=== PATIENT | female | born 1955 | race African-American/Black ===

== ENCOUNTER → 2016-05-06 | Outpatient (CLI) | payer OTHER ==
[2016-05-06 17:30] LABS: PROTHROMBIN TIME 28.1 SEC (11.4-15.4)
== END ==
LOC: OD 16:59
PROVIDERS: ATTEND Internal Medicine
DX: Z79.01 Long term (current) use of anticoagulants (principal)
CPT/HCPCS: 36415; 85610

== ENCOUNTER → 2016-05-16 | Outpatient (CLI) | payer OTHER ==
[2016-05-16 13:24] LABS: APPEARANCE,URINE CLEAR; BILIRUBIN,URINE NEGATIVE (NEGATIVE); GLUCOSE, URINE NEGATIVE (NEGATIVE); KETONES,URINE NEGATIVE (NEGATIVE); LEUKOCYTE ESTERASE,URINE NEGATIVE (NEGATIVE); NITRITE,URINE NEGATIVE (NEGATIVE); PROTEIN,URINE NEGATIVE (NEGATIVE); UROBILINOGEN,URINE NEGATIVE mg/dL (<2.0)
[2016-05-16 13:31] LABS: ABSOLUTE EOSINOPHILS # (AUTO) 0.3 10^3/uL (0.0-0.6); ABSOLUTE LYMPHOCYTES (AUTO) 2.2 10^3/uL (0.5-4.7); ABSOLUTE MONOCYTES (AUTO) 0.3 10^3/uL (0.1-1.4); ABSOLUTE NEUT (AUTO) 1.9 10^3/uL (1.7-8.2); BASOPHILS % (AUTO) 0.9 % (0-2); EOSINOPHILS % (AUTO) 6.7 % (0-6); HEMATOCRIT 39.5 % (36.0-47.0); HEMOGLOBIN 13.1 g/dL (12.0-15.5); HGB HCT DIFFERENCE -0.2; LYMPHOCYTES % (AUTO) 46.2 % (13-45); MEAN CORPUSCULAR HEMOGLOBIN 29.4 pg (27.0-33.4); MEAN CORPUSCULAR HGB CONC 33.1 g/dL (32.0-36.0); MEAN CORPUSCULAR VOLUME 89 fl (80-97); MONOCYTES % (AUTO) 6.6 % (3-13); RED BLOOD COUNT 4.45 10^6/uL (3.72-5.28); RED CELL DISTRIBUTION WIDTH 15.4 % (11.5-14.0); SEGMENTED NEUTROPHILS % (AUTO) 39.6 % (42-78); WHITE BLOOD COUNT 4.8 10^3/uL (4.0-10.5)
[2016-05-16 13:49] LABS: ALANINE AMINOTRANSFERASE 28 U/L (9-52); ALBUMIN 3.8 g/dL (3.5-5.0); ALKALINE PHOSPHATASE 85 U/L (38-126); ANION GAP 8 (5-19); ASPARTATE AMINO TRANSFERASE 29 U/L (14-36); BILIRUBIN,TOTAL 0.4 mg/dL (0.2-1.3); BLOOD UREA NITROGEN 10 mg/dL (7-20); CALCIUM 9.4 mg/dL (8.4-10.2); CARBON DIOXIDE 29 mmol/L (22-30); CHLORIDE 104 mmol/L (98-107); CHOLESTEROL 230.22 mg/dL (0-200); Direct HDL 75 mg/dL (>40); GLUCOSE 86 mg/dL (75-110); POTASSIUM 4.3 mmol/L (3.6-5.0); TOTAL PROTEIN 7.4 g/dL (6.3-8.2); TRIGLYCERIDES 161 mg/dL (<150); URIC ACID 5.8 mg/dL (2.5-7.5)
[2016-05-16 14:08] LABS: DIRECT LDL 89 mg/dL (<100)
[2016-05-16 14:13] LABS: VLDL CHOLESTEROL 32.2 mg/dL (10-31)
[2016-05-16 14:28] LABS: THYROID STIMULATING HORMONE 1.27 uIU/mL (0.47-4.68)
== END ==
LOC: OD 12:37
PROVIDERS: ATTEND Internal Medicine
DX: I10 Essential (primary) hypertension (principal); Z13.1 Encounter for screening for diabetes mellitus
CPT/HCPCS: 36415; 80053; 80061; 81001; 83036; 84439; 84443; 84550; 85025

== ENCOUNTER → 2016-07-05 | Outpatient (CLI) | payer OTHER ==
[2016-07-05 11:27] LABS: PROTHROMBIN TIME 31.6 SEC (11.4-15.4)
== END ==
LOC: OD 10:06
PROVIDERS: ATTEND Internal Medicine
DX: Z79.01 Long term (current) use of anticoagulants (principal)
CPT/HCPCS: 36415; 85610

== ENCOUNTER 2016-07-18 07:15 | Day surgery (SDC) | payer OTHER ==
[~2016-07-18 07:15] MED LIST: BUPIVACAINE HCL 0.75% INJ/PF (7.5 MG/1 ML) 10 ML SDV OD PRN; KETOROLAC TROMETHAMINE 0.45% 4 DROP/0.4 ML DROPERETTE OD PRN; LIDOCAINE 4% INJ/PF (40 MG/ML) 5 ML AMPUL OD PRN
[2016-07-18] MEDS: TROPICAMIDE 1% OPH SOLN 3 ML OD PRN ×3 (07:40→08:11)
[2016-07-18] MEDS: CYCLOPENTOLATE 0.2%/PHENYLEPHRINE 1% OPH SOLN 2 ML OD PRN ×3 (07:40→08:11)
[2016-07-18] MEDS: BESIFLOXACIN HCL 0.6% OPH SUSP 5 ML BOTTLE OD PRN ×3 (07:41→09:01)
[2016-07-18] MEDS: TETRACAINE HCL 0.5% OPH SOLN 0.6 ML DROPERETTE OD PRN ×3 (07:42→08:11)
[2016-07-18] MEDS ORDERED: CHONDR SU A NA/HYALUR INTRAOC KIT (SURGICARE) ONE (07:59)
[2016-07-18] MEDS ORDERED: EPINEPHRINE INJ/PF 1 MG/1 ML AMPULE ONE (07:59)
[2016-07-18] MEDS ORDERED: LIDOCAINE 1% INJ-PF (10 MG/ML) 30 ML SDV ONE (08:10)
[2016-07-18] MEDS ORDERED: MIDAZOLAM 2 MG/2 ML INJ ONE (08:16)
--- NOTE | 2016-07-18 10:50 | [facility] OPERATIVE REPORT E ---
[facility] Operative Report NAME: AFRICA ARMAS AGE: 61Y DATE OF SURGERY: 07/18/2016 ROOM: PREOPERATIVE DIAGNOSIS: Cataract, right eye. POSTOPERATIVE DIAGNOSIS: Cataract, right eye. PROCEDURE PERFORMED: Phacoemulsification with posterior chamber intraocular lens, right eye. SURGEON: Cecile Wright MD ANESTHESIA: Topical with MAC. INDICATIONS FOR SURGERY: Difficulty reading small print and road signs and night driving due to glare. Best corrected visual acuity 20/50. PROCEDURE: The patient was brought to the operating room and placed on the operative table. Following tetracaine drops, topical anesthesia was administered. This consisted of instrument wipe pledgets soaked in a solution of 4% Xylocaine mixed with 0.75% Marcaine in a 1:2 ratio. A 2 x 1 cm pledget was placed in the superior fornix. A 1 x 1 cm pledget was placed in the inferior fornix. The eye was patched shut for 5 minutes. The patch was removed. The eye was sterilely prepped and draped in the usual manner. Lid speculum was placed in the eye. The pledgets were removed. 4-0 black silk sutures were placed around the superior and the inferior rectus muscles to be used as traction. A conjunctival peritomy was made at the 10 o'clock position. Hemostasis was obtained with bipolar cautery. A posterior limbal groove was created using a crescent knife and dissected anteriorly towards the cornea. A sharp point blade was used to create a paracentesis site at the 2 o'clock position. A 2.4 mm keratome was used to enter the anterior chamber through the groove. Viscoelastic was injected into the anterior chamber. An anterior capsulotomy was performed using Utrata forceps in a capsulorrhexis fashion. Hydrodissection and hydrodelineation were performed. Phacoemulsification was performed in ozjefd-aty-[id number] technique. Total phaco time 44 seconds. Following this, the I/A unit was used to remove residual cortex. Viscoelastic was injected into the capsular bag. Intraocular lens model SN60WF, 21.0 diopters, serial number [id number] was placed in the capsular bag. The I/A unit was used to remove residual viscoelastic. The wound was seen to be watertight under high and low pressure, and no sutures were placed. The intraocular lens was well centered. The pressure was adjusted in the eye to normal pressure. The 4-0 black silk sutures and lid speculum were removed. The eye was shielded after Besivance drops were placed. The patient tolerated the procedure well and was sent to the recovery room in good condition. DICTATING PHYSICIAN: CECILE WRIGHT M.D. [id number] PHY#: [id number] ID: [id number] JOB#: [id number] ACCT: [id number] cc:CECILE WRIGHT M.D. >
--- NOTE | 2016-07-18 10:51 | [facility] DISCHARGE SUMMARY E ---
[facility] Discharge Summary NAME: AFRICA ARMAS AGE: 61Y ADMITTED: 07/18/2016 DISCHARGED: 07/18/2016 PREOPERATIVE DIAGNOSIS: Cataract, right eye. POSTOPERATIVE DIAGNOSIS: Cataract, right eye. HOSPITAL COURSE: The patient is a 61-year-old lady who underwent uneventful cataract extraction with intraocular lens implant, right eye, on 07/18/2016. She will be discharged to home. She was instructed to resume preoperative medications, take Tylenol as needed for discomfort, to keep her eye shielded, to use Besivance, Durezol, and Ilevro at 3 p.m. and 8 p.m., and to followup in my office in 1 day. DICTATING PHYSICIAN: DANNIE WRIGHT M.D. [id number] PHY#: [id number] ID: [id number] JOB#: [id number] ACCT: [id number] cc:DANNIE WRIGHT M.D. >
== END 2016-07-18 09:48 | disposition home or self-care (01) ==
LOC: SC 07:15
PROVIDERS: ATTEND Ophthalmology
PROC: 08RJ3JZ Replacement of Right Lens with Synthetic Substitute, Percutaneous Approach (ICD-10-PCS; principal; 2016-07-18 08:30)
DX: H25.811 Combined forms of age-related cataract, right eye (principal); Z96.1 Presence of intraocular lens; H26.492 Other secondary cataract, left eye; H43.813 Vitreous degeneration, bilateral; H52.4 Presbyopia; I10 Essential (primary) hypertension; K21.9 Gastro-esophageal reflux disease without esophagitis; M19.90 Unspecified osteoarthritis, unspecified site; Z86.711 Personal history of pulmonary embolism; Z79.899 Other long term (current) drug therapy; Z79.01 Long term (current) use of anticoagulants
CPT/HCPCS: 66984; V2632; J2250; J3490 ×4; J0171

== ENCOUNTER → 2016-08-02 | Outpatient (CLI) | payer OTHER ==
[2016-08-02 12:19] LABS: PROTHROMBIN TIME 27.6 SEC (11.4-15.4)
== END ==
LOC: OD 11:03
PROVIDERS: ATTEND Internal Medicine
DX: Z79.01 Long term (current) use of anticoagulants (principal)
CPT/HCPCS: 36415; 85610

== ENCOUNTER → 2016-08-20 | Outpatient (CLI) | payer OTHER | LOC: WI 13:31 | PROVIDERS: ATTEND Obstetrics & Gynecology Gynecology | DX: Z12.31 Encounter for screening mammogram for malignant neoplasm of breast (principal) | CPT/HCPCS: 77067; G0202 ==

== ENCOUNTER → 2016-09-04 | Outpatient (CLI) | payer OTHER ==
[2016-09-04 12:04] LABS: PROTHROMBIN TIME 20.2 SEC (11.4-15.4)
== END ==
LOC: OD 11:23
PROVIDERS: ATTEND Internal Medicine
DX: Z79.01 Long term (current) use of anticoagulants (principal)
CPT/HCPCS: 36415; 85610

== ENCOUNTER → 2016-10-04 | Outpatient (CLI) | payer OTHER ==
[2016-10-04 16:11] LABS: PROTHROMBIN TIME 27.1 SEC (11.4-15.4)
== END ==
LOC: OD 13:55
PROVIDERS: ATTEND Internal Medicine
DX: Z79.01 Long term (current) use of anticoagulants (principal)
CPT/HCPCS: 36415; 85610

== ENCOUNTER → 2017-02-04 | Outpatient (CLI) | payer OTHER ==
[2017-02-04 10:21] LABS: PROTHROMBIN TIME 19.2 SEC (11.4-15.4)
== END ==
LOC: OD 09:53
PROVIDERS: ATTEND Internal Medicine
DX: R79.1 Abnormal coagulation profile (principal)
CPT/HCPCS: 36415; 85610

== ENCOUNTER 2017-02-19 08:52 | Day surgery (SDC) | payer OTHER ==
--- NOTE | 2017-02-13 15:42 | HISTORY AND PHYSICAL E ---
History and Physical NAME: AFRICA ARMAS : 1955 AGE: 61Y ADMITTED: 02/19/2017 ROOM: CHIEF COMPLAINT: Colon screening. HISTORY OF PRESENT ILLNESS: The patient had colonoscopy in 2000 showing diverticulosis sigmoid colon, lipoma in the ascending colon, external hemorrhoids. The patient's primary DrKe Mojica. I saw the patient again in 2008 and colonoscopy again shows lipoma in the ascending colon, diverticulosis. She did have a small 3 mm adenoma polyp in the ascending colon. Biopsy; adenoma polyp. Another colonoscopy in 2014 showed the following; ascending colon fatty lipoma. The patient's primary doctor, Dr. Mckeon. She did have adenoma polyp cecum and adenoma polyp ascending colon, lipoma. SOCIAL HISTORY: Does not smoke, does not drink. CONCLUSION: 1. Colorectal polyps. 2. Tubular adenoma of the transverse colon. 3. A 3 mm sessile polyp midtransverse colon. PLAN: Colonoscopy. Admit for colon to be done on 02/19. DICTATING PHYSICIAN: MELINA AMARO M.D. [id number] PHY#: [id number] ID: [id number] JOB#: [id number] ACCT: [id number] cc:MELINA AMARO M.D. >
[2017-02-19] MEDS: GLUCAGON,HUMAN RECOMB 1 MG INJ ONE ×2 (08:32→09:32)
[~2017-02-19 08:52] MED LIST changes: -BUPIVACAINE HCL 0.75% INJ/PF (7.5 MG/1 ML) 10 ML SDV OD PRN; +EPINEPHRINE INJ 1 MG/10 ML DISP.SYRIN ONE; +FLUMAZENIL INJ 0.5 MG/5 ML VIAL ONE; +GLYCOPYRROLATE INJ 0.4 MG/2 ML VIAL ONE; -KETOROLAC TROMETHAMINE 0.45% 4 DROP/0.4 ML DROPERETTE OD PRN; +LIDOCAINE 2% JELLY 30 ML TUBE ONE; -LIDOCAINE 4% INJ/PF (40 MG/ML) 5 ML AMPUL OD PRN; +NALOXONE HCL INJ/PF 0.4 MG/1 ML SDV ONE; +ONDANSETRON HCL INJ/PF 4 MG/2 ML SDV ONE
[2017-02-19 09:17] LABS: PROTHROMBIN TIME 14.9 SEC (11.4-15.4)
[2017-02-19] MEDS: MIDAZOLAM 2 MG/2 ML INJ ONE ×3 (09:29→09:39)
[2017-02-19] MEDS: FENTANYL CITRATE INJ/PF 100 MCG/2 ML AMPUL ONE ×2 (09:30→09:38)
[2017-02-19 10:47] VITALS: BP 114/66
--- NOTE | 2017-02-19 12:36 | DISCHARGE SUMMARY E ---
Discharge Summary NAME: AFRICA ARMAS : 1955 AGE: 61Y ADMITTED: 02/19/2017 DISCHARGED: 02/19/2017 HOSPITAL COURSE: The patient is a 61-year-old female who presented with history of polyps. Patient does have history of pulmonary emboli. She is on Coumadin for pulmonary emboli. She did have previous colonoscopy showing adenoma polyp mid transverse colon lipoma. Today's colonoscopy shows no changes. She still has small adenoma polyp surrounding fold in the mid transverse colon difficult to resect. PLAN: Patient to have followup with Dr. Mcleod in 6 months for consideration repeat colonoscopy with attention to a small polyp surrounding fold in the mid transverse colon and lipoma. Patient discharged to resume all her medications. Will see her in the office in the next few days. She is allergic to OXYCODONE. DICTATING PHYSICIAN: MELINA AMARO M.D. [id number] PHY#: [id number] ID: [id number] JOB#: [id number] ACCT: [id number] cc:AFTAB OROZCO M.D., MAHMOUD M.D. PATSELAS, TIMOTHY M.D. >
--- NOTE | 2017-02-19 12:57 | OPERATIVE REPORT E ---
Operative Report NAME: AFRICA ARMAS : 1955 AGE: 61Y DATE OF SURGERY: 02/19/2017 ROOM: PREOPERATIVE DIAGNOSIS: Polyps. POSTOPERATIVE DIAGNOSIS: Small 3 mm polyp at mid transverse colon surrounded a fold, difficult to resect, sessile, benign looking. Previous biopsy shows adenoma. Lipoma in the mid transverse colon. PROCEDURE: Colonoscopy. SURGEON: MELINA AMARO M.D. TISSUE REMOVED OR ALTERED: None. NOTE: Patient stopped her Coumadin for 5 days and she still has pro time of 14 and INR 1.1. PROCEDURE: Rectal exam normal. Sigmoid and descending colon questioned 2 mm polyp. Descending colon, transverse colon small polyp adenoma surrounded fold, difficult to resect and benign looking. Previous biopsy shows it is adenoma. Ascending normal. Appendix normal. Scope withdrawn cecum, ascending, transverse, descending, sigmoid all the way to the rectum. CONCLUSIONS: Benign polyp, adenoma, mid transverse colon, difficult to biopsy, did not grow since previous colonoscopy a year ago. PLAN: Patient needs to have follow-up colonoscopy in 6 months. We will advise her to follow up with our surgical colleague, Dr. Mcleod. DICTATING PHYSICIAN: MELINA AMARO M.D. [id number] PHY#: [id number] ID: [id number] JOB#: [id number] ACCT: [id number] cc:AFTAB OROZCO M.D., MAHMOUD M.D. PATSELAS, TIMOTHY M.D. >
[2017-02-19 13:21] LABS: ABSOLUTE BASOPHILS # (AUTO) 0.1 10^3/uL (0.0-0.2); ABSOLUTE EOSINOPHILS # (AUTO) 0.6 10^3/uL (0.0-0.6); ABSOLUTE LYMPHOCYTES (AUTO) 1.9 10^3/uL (0.5-4.7); ABSOLUTE MONOCYTES (AUTO) 0.5 10^3/uL (0.1-1.4); ABSOLUTE NEUT (AUTO) 2.1 10^3/uL (1.7-8.2); EOSINOPHILS % (AUTO) 11.9 % (0-6); HEMOGLOBIN 12.7 g/dL (12.0-15.5); HGB HCT DIFFERENCE 0.1; LYMPHOCYTES % (AUTO) 36.6 % (13-45); MEAN CORPUSCULAR HEMOGLOBIN 29.9 pg (27.0-33.4); MEAN CORPUSCULAR HGB CONC 33.5 g/dL (32.0-36.0); MEAN CORPUSCULAR VOLUME 89 fl (80-97); MONOCYTES % (AUTO) 9.2 % (3-13); RED BLOOD COUNT 4.25 10^6/uL (3.72-5.28); RED CELL DISTRIBUTION WIDTH 14.8 % (11.5-14.0); SEGMENTED NEUTROPHILS % (AUTO) 41.3 % (42-78); WHITE BLOOD COUNT 5.2 10^3/uL (4.0-10.5)
== END 2017-02-19 11:00 | disposition home or self-care (01) ==
LOC: END 08:52
PROVIDERS: ATTEND Specialist
PROC: 0DJD8ZZ Inspection of Lower Intestinal Tract, Via Natural or Artificial Opening Endoscopic (ICD-10-PCS; principal; 2017-02-19 09:00)
DX: Z12.11 Encounter for screening for malignant neoplasm of colon (principal); D12.3 Benign neoplasm of transverse colon; D17.5 Benign lipomatous neoplasm of intra-abdominal organs; K64.9 Unspecified hemorrhoids; Z79.01 Long term (current) use of anticoagulants; Z86.711 Personal history of pulmonary embolism
CPT/HCPCS: 45378; 36415; 82378; 85025; 85610; J2250; J3010; J1610; J2405; J0171; J2310; J3490

== ENCOUNTER → 2017-04-04 | Outpatient (CLI) | payer OTHER ==
[2017-04-04 14:43] LABS: INTERNATIONAL RATION (INR) 3.07; PROTHROMBIN TIME 33.1 SEC (11.4-15.4)
== END ==
LOC: OD 13:31
PROVIDERS: ATTEND Internal Medicine
DX: R79.1 Abnormal coagulation profile (principal)
CPT/HCPCS: 36415; 85610

== ENCOUNTER → 2017-08-09 | Outpatient (CLI) | payer OTHER ==
[2017-08-09 09:16] LABS: ABSOLUTE LYMPHOCYTES (AUTO) 1.5 10^3/uL (0.5-4.7); ABSOLUTE MONOCYTES (AUTO) 0.5 10^3/uL (0.1-1.4); ABSOLUTE NEUT (AUTO) 4.2 10^3/uL (1.7-8.2); BASOPHILS % (AUTO) 0.4 % (0-2); EOSINOPHILS % (AUTO) 0.6 % (0-6); HEMATOCRIT 41.1 % (36.0-47.0); HEMOGLOBIN 13.6 g/dL (12.0-15.5); LYMPHOCYTES % (AUTO) 23.4 % (13-45); MEAN CORPUSCULAR HEMOGLOBIN 29.4 pg (27.0-33.4); MEAN CORPUSCULAR HGB CONC 33.1 g/dL (32.0-36.0); MEAN CORPUSCULAR VOLUME 89 fl (80-97); MONOCYTES % (AUTO) 7.6 % (3-13); PLATELET COUNT 259 10^3/uL (150-450); RED BLOOD COUNT 4.63 10^6/uL (3.72-5.28); RED CELL DISTRIBUTION WIDTH 15.1 % (11.5-14.0); TOTAL CELLS COUNTED % (AUTO) 100 %; WHITE BLOOD COUNT 6.2 10^3/uL (4.0-10.5)
[2017-08-09 09:30] LABS: INTERNATIONAL RATION (INR) 1.46; PROTHROMBIN TIME 18.4 SEC (11.4-15.4)
[2017-08-09 09:31] LABS: APPEARANCE,URINE CLEAR; BILIRUBIN,URINE NEGATIVE (NEGATIVE); COLOR,URINE YELLOW; GLUCOSE, URINE NEGATIVE (NEGATIVE); KETONES,URINE NEGATIVE (NEGATIVE); LEUKOCYTE ESTERASE,URINE NEGATIVE (NEGATIVE); NITRITE,URINE NEGATIVE (NEGATIVE); PROTEIN,URINE NEGATIVE (NEGATIVE); URINE SPECIFIC GRAVITY 1.023; UROBILINOGEN,URINE NEGATIVE mg/dL (<2.0)
[2017-08-09 09:32] LABS: ALANINE AMINOTRANSFERASE 22 U/L (9-52); ALBUMIN 4.4 g/dL (3.5-5.0); ALKALINE PHOSPHATASE 71 U/L (38-126); ANION GAP 9 (5-19); ASPARTATE AMINO TRANSFERASE 26 U/L (14-36); BILIRUBIN,DIRECT 0.2 mg/dL (0.0-0.4); BILIRUBIN,TOTAL 0.3 mg/dL (0.2-1.3); BLOOD UREA NITROGEN 13 mg/dL (7-20); CALCIUM 9.8 mg/dL (8.4-10.2); CARBON DIOXIDE 30 mmol/L (22-30); CHLORIDE 104 mmol/L (98-107); CHOLESTEROL 222.47 mg/dL (0-200); GLUCOSE 97 mg/dL (75-110); POTASSIUM 4.6 mmol/L (3.6-5.0); SODIUM 143.1 mmol/L (137-145); TOTAL PROTEIN 7.8 g/dL (6.3-8.2); TRIGLYCERIDES 33 mg/dL (<150); URIC ACID 5.1 mg/dL (2.5-7.5)
[2017-08-09 09:43] LABS: DIRECT LDL 89 mg/dL (<100)
[2017-08-09 09:47] LABS: FREE T4 (FREE THYROXINE) 0.93 ng/dL (0.78-2.19)
[2017-08-09 10:01] LABS: THYROID STIMULATING HORMONE 0.84 uIU/mL (0.47-4.68)
[2017-08-11 03:36] LABS: MICROALBUMIN URINE 4.7 ug/mL (Not Estab.)
== END ==
LOC: OD 08:13
PROVIDERS: ATTEND Internal Medicine
DX: I10 Essential (primary) hypertension (principal); R79.1 Abnormal coagulation profile
CPT/HCPCS: 36415; 80053; 80061; 81001; 82043; 82570; 82607; 82652; 84439; 84443; 84550; 85025; 85610

== ENCOUNTER 2017-09-07 09:53 | Emergency (ER) | payer OTHER ==
[2017-09-07] MEDS ORDERED: ASPIRIN 81 MG TABLET, CHEWABLE PO ONE (10:16)
--- NOTE | 2017-09-07 10:22 | ER Document Report ---
ED Medical Screen (RME) - General Chief Complaint: Shortness Of Breath Stated Complaint: CHEST PAIN Time Seen by Provider: 09/07/17 10:15 Mode of Arrival: Wheelchair Information source: Patient, Relative Notes: 62-year-old female history of PE on Coumadin presents with complaints of cramping in her legs chest pain shortness of breath. Patient denies any fevers or chills notes symptoms have been ongoing for approximately 1 week patient does not believe she has had a heart cath in the past Last INR was checked 1 month ago I have greeted and performed a rapid initial assessment of this patient. A comprehensive ED assessment and evaluation of the patient, analysis of test results and completion of the medical decision making process will be conducted by additional ED providers. PHYSICAL EXAMINATION: GENERAL: Well-appearing, well-nourished and in no acute distress. HEAD: Atraumatic, normocephalic. EYES: Pupils equal round extraocular movements intact, conjunctiva are normal. ENT: Nares patent NECK: Normal range of motion LUNGS: No respiratory distress Musculoskeletal: Normal range of motion NEUROLOGICAL: Normal speech, normal gait. PSYCH: Normal mood, normal affect. SKIN: Warm, Dry, normal turgor, no rashes or lesions noted. TRAVEL OUTSIDE OF THE [place] IN LAST 30 DAYS: No - Related Data Allergies/Adverse Reactions: oxycodone HCl [From Percocet] Allergy (Mild, Verified 02/13/16 07:56) VOMITING Past Medical History - Past Medical History Cardiac Medical History: Reports: Hx Hypertension - MEDICATED Denies: Hx Coronary Artery Disease, Hx Heart Attack Pulmonary Medical History: Denies: Hx Asthma, Hx Bronchitis, Hx COPD, Hx Pneumonia, Hx Tuberculosis Neurological Medical History: Denies: Hx Cerebrovascular Accident, Hx Seizures GI Medical History: Denies: Hx Hepatitis, Hx Hiatal Hernia, Hx Ulcer Musculoskeltal Medical History: Reports Hx Arthritis - KNEES Psychiatric Medical History: Denies: Hx Depression Infectious Medical History: Denies: Hx Hepatitis Past Surgical History: Denies: Hx Hysterectomy, Hx Mastectomy, Hx Open Heart Surgery, Hx Pacemaker - Immunizations Immunizations up to date: Yes Hx Diphtheria, Pertussis, Tetanus Vaccination: No Physical Exam - Vital signs Vitals: Temp Pulse Resp BP Pulse Ox 98.5 F 82 20 164/84 H 100 09/07/17 09:59 09/07/17 09:59 09/07/17 09:59 09/07/17 09:59 09/07/17 09:59 Course - Vital Signs Vital signs: Temp Pulse Resp BP Pulse Ox 98.5 F 82 20 164/84 H 100 09/07/17 09:59 09/07/17 09:59 09/07/17 09:59 09/07/17 09:59 09/07/17 09:59 Doctor's Discharge - Discharge Referrals: AFTAB OROZCO MD [Primary Care Provider] - Follow up as needed
[2017-09-07 10:59] LABS: ABSOLUTE EOSINOPHILS # (AUTO) 0.2 10^3/uL (0.0-0.6); ABSOLUTE LYMPHOCYTES (AUTO) 1.9 10^3/uL (0.5-4.7); ABSOLUTE MONOCYTES (AUTO) 0.3 10^3/uL (0.1-1.4); ABSOLUTE NEUT (AUTO) 1.7 10^3/uL (1.7-8.2); BASOPHILS % (AUTO) 0.9 % (0-2); HEMATOCRIT 41.7 % (36.0-47.0); HEMOGLOBIN 14.1 g/dL (12.0-15.5); LYMPHOCYTES % (AUTO) 46.6 % (13-45); MEAN CORPUSCULAR HGB CONC 33.7 g/dL (32.0-36.0); MEAN CORPUSCULAR VOLUME 89 fl (80-97); MONOCYTES % (AUTO) 6.7 % (3-13); PLATELET COUNT 235 10^3/uL (150-450); RED BLOOD COUNT 4.69 10^6/uL (3.72-5.28); RED CELL DISTRIBUTION WIDTH 14.8 % (11.5-14.0); SEGMENTED NEUTROPHILS % (AUTO) 41.8 % (42-78); TOTAL CELLS COUNTED % (AUTO) 100 %
[2017-09-07 11:01] LABS: PROTHROMBIN TIME 25.5 SEC (11.4-15.4)
--- NOTE | 2017-09-07 11:06 | ER Document Report ---
ED General <TANIAHUGO - Last Filed: 09/07/17 13:01> - General Mode of Arrival: Wheelchair Information source: Patient TRAVEL OUTSIDE OF THE [place] IN LAST 30 DAYS: No <LISSY SNÁCHEZ - Last Filed: 09/07/17 14:05> - General Chief Complaint: Shortness Of Breath Stated Complaint: CHEST PAIN Time Seen by Provider: 09/07/17 10:15 Notes: Patient is a 62 year old female that presents to the emergency department today with complaints of shortness of breath and chest pain which began yesterday and increased this morning upon awakening. Patient is on Coumadin secondary to a PE diagnosed on 06/16/2013. Patient has been taking her medications as prescribed and has not missed any dosages. Patient sighs a lot throughout exam appearing depressed. (LISSY SÁNCHEZ) - Related Data Allergies/Adverse Reactions: oxycodone HCl [From Percocet] Allergy (Mild, Verified 09/07/17 10:22) VOMITING Past Medical History - General Information source: Patient, Relative - Social History Smoking Status: Never Smoker Cigarette use (# per day): No Chew tobacco use (# tins/day): No Frequency of alcohol use: Social Drug Abuse: None Lives with: Family Family History: Reviewed & Not Pertinent Patient has suicidal ideation: No Patient has homicidal ideation: No - Past Medical History Cardiac Medical History: Reports: Hx Hypertension - MEDICATED Musculoskeltal Medical History: Reports Hx Arthritis - KNEES Past Surgical History: Reports: Hx Orthopedic Surgery - Bilateral feet - Immunizations Immunizations up to date: Yes Hx Diphtheria, Pertussis, Tetanus Vaccination: No <LISSY SÁNCHEZ - Last Filed: 09/07/17 14:05> Review of Systems - Review of Systems Constitutional: No symptoms reported EENT: No symptoms reported Cardiovascular: See HPI, Chest pain Respiratory: See HPI, Short of breath Gastrointestinal: No symptoms reported Genitourinary: No symptoms reported Female Genitourinary: No symptoms reported Musculoskeletal: No symptoms reported Skin: No symptoms reported Hematologic/Lymphatic: No symptoms reported Neurological/Psychological: No symptoms reported -: Yes All other systems reviewed and negative <LISSY SÁNCHEZ - Last Filed: 09/07/17 14:05> Physical Exam - Vital signs Interpretation: Normal - General General appearance: Appears well, Alert - HEENT Head: Normocephalic, Atraumatic Eyes: Normal Pupils: PERRL - Respiratory Respiratory status: No respiratory distress Chest status: Tender - exquisite lower sternal tenderness with palpation, mild right and left chest wall tenderness with palpation Breath sounds: Normal Chest palpation: Normal - Cardiovascular Rhythm: Regular Heart sounds: Normal auscultation Murmur: No - Abdominal Inspection: Normal Distension: No distension Bowel sounds: Normal Tenderness: Nontender Organomegaly: No organomegaly - Back Back: Normal, Nontender - Extremities General upper extremity: Normal inspection, Nontender. No: Edema General lower extremity: Normal inspection, Nontender, Edema - 1+ - Neurological Neuro grossly intact: Yes Cognition: Normal Orientation: AAOx4 Mariely Coma Scale Eye Opening: Spontaneous [place] Coma Scale Verbal: Oriented [place] Coma Scale Motor: Obeys Commands [place] Coma Scale Total: 15 Speech: Normal - Psychological Associated symptoms: Depressed - lots of sighing throughout interaction - Skin Skin Temperature: Warm Skin Moisture: Dry Skin Color: Normal <LISSY SÁNCHEZ - Last Filed: 09/07/17 14:05> - Vital signs Vitals: Temp Pulse Resp BP Pulse Ox 98.5 F 82 20 164/84 H 100 09/07/17 09:59 09/07/17 09:59 09/07/17 09:59 09/07/17 09:59 09/07/17 09:59 Course - Laboratory Result Diagrams: 09/07/17 10:35 09/07/17 10:35 - Diagnostic Test Radiology reviewed: Reports reviewed - CTA chest is unremarkable - EKG Interpretation by [place] EKG shows normal: Sinus rhythm, Alpha, Intervals, QRS Complexes, ST-T Waves Rate: Normal Rhythm: NSR <HUGO MARIN - Last Filed: 09/07/17 13:01> - Laboratory Result Diagrams: 09/07/17 10:35 09/07/17 10:35 <LISSY SÁNCHEZ - Last Filed: 09/07/17 14:05> - Re-evaluation Re-evalutation: 09/07/17 13:01 Patient's INR is 2.20, CK is slightly elevated, troponin is undetectable, CTA chest is unremarkable. (HUGO MARIN) - Vital Signs Vital signs: Temp Pulse Resp BP Pulse Ox 98.5 F 82 16 110/75 99 09/07/17 09:59 09/07/17 09:59 06/03/18 13:01 09/07/17 13:01 09/07/17 13:01 - Laboratory Laboratory results interpreted by me: 09/07/17 09/07/17 09/07/17 10:35 10:35 10:35 RDW 14.8 H Seg Neutrophils % 41.8 L Lymphocytes % 46.6 H PT 25.5 H Creatine Kinase 437 H Discharge <HUGO MARIN - Last Filed: 09/07/17 13:01> <LISSY SÁNCHEZ - Last Filed: 09/07/17 14:05> - Discharge Clinical Impression: Chest wall pain, Restless leg syndrome Condition: Stable Disposition: HOME, SELF-CARE Additional Instructions: Chest Wall Pain: Your chest pain has been diagnosed as coming from the chest wall. This is often caused by straining the muscles or joints in the chest during physical activity, direct trauma, coughing, or vigorous vomiting. Persons with arthritis are especially prone to this type of pain, due to inflammation of the cartilage joints near the breast bone. Occasionally, no cause can be found. Rest from strenuous physical activity. This kind of chest pain is usually made worse by movement of the chest. Depending on the symptoms, we may prescribe medicine for pain, muscle relaxation, and antiinflammatory effects. If the pain is new, and seems to be due to muscle strain, cold packs can help. Otherwise, apply gentle warmth to the painful area for 15 minutes every hour or two. You should contact the doctor immediately if things change. Further evaluation is needed if you develop a fever or cough, if the nature of the pain changes, or if you become short of breath. Dyspnea, Nonspecific: You were evaluated for shortness of breath, or dyspnea. Dyspnea has many causes, and some are more serious than others. Sometimes it's impossible to diagnose the cause of dyspnea with the tests that are available on an emergency basis. Based on our evaluation today, you do not need hospitalization now. We found no evidence of pneumonia, collapsed lung, blood clots in the lung, tumors , or heart failure. Causes of non-specific dyspnea can include asthma or bronchospasm, hyperventilation, emotional distress, heart disease, emphysema, fibrosis of the lung, and stiffness of the chest wall. In healthy individuals with a single episode, it's sometimes reasonable to do nothing but wait to see if the problem occurs again. Additional tests used to evaluate dyspnea can include cardiac stress testing, echocardiography, pulmonary function testing, CAT scan of the chest, bronchoscopy or pulmonary biopsy. Return if shortness of breath persists or worsens, or if you develop chest pain, fever, cough, confusion, or fainting. Your chest pain seems to be coming from the sternum and anterior chest wall today. Your skeletal muscle enzymes are slightly elevated and this may be related to the discomfort in your anterior chest wall. Your heart enzymes are undetectable, and the CT angiogram of your chest was normal. This means there is no pulmonary embolus or blood clots in her lungs. Your oxygen saturation on room air was 100%. There is no clear explanation for your sensation of shortness of breath. Your INR was 2.20 which is therapeutic for the Coumadin dosing. You should continue your regular medications, rest today, drink plenty of fluids , and follow-up with Dr. Orozco this week if not improving. RETURN TO THE EMERGENCY ROOM IF ANY NEW OR WORSENING SYMPTOMS. Referrals: AFATB OROZCO MD [Primary Care Provider] - Follow up as needed Scribe Attestation: 09/07/17 11:45 I personally performed the services described in the documentation, reviewed and edited the documentation which was dictated to the scribe in my presence, and it accurately records my words and actions. (HUGO MARIN) Scribe Documentation - Scribe Written by Stormy:: Stormy Sy, 09/07/2017, 0415 acting as scribe for :: Tania <LISSY SÁNCHEZ - Last Filed: 09/07/17 14:05>
[2017-09-07 11:10] LABS: ALANINE AMINOTRANSFERASE 22 U/L (9-52); ALBUMIN 4.3 g/dL (3.5-5.0); ALKALINE PHOSPHATASE 68 U/L (38-126); ANION GAP 11 (5-19); ASPARTATE AMINO TRANSFERASE 34 U/L (14-36); BILIRUBIN,DIRECT 0.2 mg/dL (0.0-0.4); BILIRUBIN,TOTAL 0.2 mg/dL (0.2-1.3); BLOOD UREA NITROGEN 18 mg/dL (7-20); CALCIUM 9.9 mg/dL (8.4-10.2); CARBON DIOXIDE 27 mmol/L (22-30); CHLORIDE 106 mmol/L (98-107); CREATINE KINASE 437 U/L (30-135); GLUCOSE 105 mg/dL (75-110); POTASSIUM 3.6 mmol/L (3.6-5.0); SODIUM 144.1 mmol/L (137-145); TOTAL PROTEIN 7.5 g/dL (6.3-8.2)
[2017-09-07 11:20] LABS: CREATINE KINASE MB 1.66 ng/mL (<4.55)
[2017-09-07 11:22] LABS: TROPONIN I < 0.012 ng/mL
--- NOTE | 2017-09-07 11:41 | RADIOLOGY REPORT (SQ) ---
EXAM DESCRIPTION: CHEST SINGLE VIEW COMPLETED DATE/TIME: 09/07/2017 11:33 am REASON FOR STUDY: chest pain COMPARISON: 09/13/2013 EXAM PARAMETERS: NUMBER OF VIEWS: One view. TECHNIQUE: Single frontal radiographic view of the chest acquired. RADIATION DOSE: NA LIMITATIONS: None. FINDINGS: LUNGS AND PLEURA: No opacities, masses or pneumothorax. No pleural effusion. MEDIASTINUM AND HILAR STRUCTURES: No masses. Contour normal. HEART AND VASCULAR STRUCTURES: Heart stable in size. Normal vasculature. BONES: No acute findings. HARDWARE: None in the chest. OTHER: No other significant finding. IMPRESSION: NO ACUTE RADIOGRAPHIC FINDING IN THE CHEST. NO SIGNIFICANT CHANGE FROM PRIOR STUDY. TECHNICAL DOCUMENTATION: JOB ID: [id number] [employer]- All Rights Reserved Reading location - IP/workstation name: [email or web address]
--- NOTE | 2017-09-07 11:51 | RADIOLOGY REPORT (SQ) ---
EXAM DESCRIPTION: CTA CHEST COMPLETED DATE/TIME: 09/07/2017 11:41 am REASON FOR STUDY: chest pain, sob , hx pe COMPARISON: 09/13/2013 TECHNIQUE: CT scan of the chest performed using helical scanning technique with dynamic intravenous contrast injection. Images reviewed with lung, soft tissue and bone windows. Reconstructed coronal and sagittal MPR images reviewed. Additional 3 dimensional post-processing performed to develop Maximal Intensity Projection images (ND P). All images stored on PACS. All CT scanners at this facility use dose modulation, iterative reconstruction, and/or weight based d osing when appropriate to reduce radiation dose to as low as reasonably achievable (ALARA). [facility]: Dose Right [facility]: CareDose [facility]: Dose Right [facility]: Teradose 4D [facility]: [employer] CONTRAST TYPE AND DOSE: contrast/concentration: Isovue 370.00 mg/ml; Total Contrast Delivered: 82.0 ml; Total Saline Delivered: 102.0 ml Contrast bolus optimized for the pulmonary arteries. Not diagnostic for the aorta. RENAL FUNCTION: GFR > 60. RADIATION DOSE: CT Rad equipment meets quality standard of care and radiation dose reduction techniq ues were employed. CTDIvol: 18.0 - 23.2 mGy. DLP: 670 mGy-cm. . LIMITATIONS: None. FINDINGS: LUNGS AND PLEURA: No masses, infiltrates, pneumothorax. No pleural effusions, calcificati ons. AORTA AND GREAT VESSELS: No aneurysm. Contrast bolus not optimized for the aorta. HEART: No pericardial effusion. No significant coronary artery calcifications. PULMONARY ARTERIES: No emboli visualized in the main pulmonary arteries or the segmental branches. HILAR AND MEDIASTINAL STRUCTURES: No identified masses or abnormal nodes. HARDWARE: None in the chest. UPPER ABDOMEN: No significant findings. Limited exam. THYROID AND OTHER SOFT TISSUES: No masses. No adenopathy. BONES: No acute or significant finding. 3D MIPS: Confirm above findings. OTHER: No other significant finding. IMPRESSION: UNREMARKABLE CTA OF THE CHEST. NO PULMONARY EMBOLI. COMMENT: Quality ID # [id number]: Final reports with documentation of one or more dose reduction techniques (e.g., Automated exposure control, adjustment of the mA and/or kV according to patient size, use of iterative reconstruction technique) TECHNICAL DOCUMENTATION: JOB ID: [id number] [employer]- All Rights Reserved Reading location - IP/workstation name: [email or web address]
[2017-09-07 13:32] VITALS: BP 110/75
--- NOTE | 2017-09-07 23:11 | EKG REPORT ---
SEVERITY:- NORMAL ECG - SINUS RHYTHM : Confirmed by: Elaine Hernandez 07-Sep-2017 23:10:32
== END 2017-09-07 13:46 | disposition home or self-care (01) ==
LOC: ER 09:53
DX: G25.81 Restless legs syndrome (principal); R07.89 Other chest pain; R06.02 Shortness of breath; I10 Essential (primary) hypertension; Z88.6 Allergy status to analgesic agent; Z79.02 Long term (current) use of antithrombotics/antiplatelets
CPT/HCPCS: 36415; 71045; 71275; 80053; 82550; 82553; 84484; 85025; 85610; 93005; 93010; 99285

== ENCOUNTER → 2018-06-17 | Outpatient (CLI) | payer OTHER ==
[2018-06-17 11:49] LABS: INTERNATIONAL RATION (INR) 2.17; PROTHROMBIN TIME 25.2 SEC (11.4-15.4)
== END ==
LOC: OD 11:10
PROVIDERS: ATTEND Internal Medicine
DX: R79.1 Abnormal coagulation profile (principal)
CPT/HCPCS: 36415; 85610

== ENCOUNTER → 2018-11-17 | Outpatient (CLI) | payer OTHER ==
--- NOTE | 2018-11-18 09:25 | RADIOLOGY REPORT (SQ) ---
EXAM DESCRIPTION: MRI RT UPPER JOINT WITHOUT COMPLETED DATE/TIME: 11/17/2018 3:00 pm REASON FOR STUDY: (M25.511)PAIN IN RIGHT SHOULDER M25.511 PAIN IN RIGHT SHOULDER COMPARISON: None. TECHNIQUE: Right shoulder images acquired and stored on PACS. Multiplanar imaging to include fat sen sitive sequences such as T1, water sensitive sequences such as FST2/STIR, cartilage sensitive sequenc es such as FSPD/gradient-echo sequences. LIMITATIONS: None. FINDINGS: BONE MARROW AND CORTEX: No worrisome bone lesions or marrow replacement. No occult fractur es. JOINT OR BURSAL EFFUSION: No significant joint or bursal fluid. No suggestion of loose bodies. GLENO-HUMERAL ARTICULATION: Normal articulation. No subluxation. No cystic change. No osteophytes or cartilage loss. ACROMION AND AC JOINT: Mild -moderate AC degenerative overgrowth with slight subacromial narrowing. ROTATOR CUFF AND INTERVAL: Thickening and tendinosis. Mild intrasubstance tear along supraspinatus i nsertion with underlying mild reactive bone cyst formation in the humerus. No full-thickness breech. Minimal fatty atrophy may be present in the supraspinatus. LABRUM AND BICEPS LABRAL COMPLEX: Tear in the biceps anchor without propagation into the biceps ten don. Biceps looks normal in location and signal. REMAINDER OF LABRUM AND IGHL : Blunted appearance of the posterior labrum. Irregular appearance payam g the anterior inferior glenoid adjacent to the labrum. Likely degenerative in etiology. There is a lso mild regional capsular scarring, likely adhesive capsulitis. PERIARTICULAR AND ADJACENT SOFT TISSUES: No masses or abnormal nodes. OTHER: No other significant finding. IMPRESSION: 1. Cuff disease. Tendinosis and partial tear without full-thickness breech. 2. Other findings as above. This includes what appears to be superior labral tear without biceps pro pagation and adhesive capsulitis. TECHNICAL DOCUMENTATION: JOB ID: [id number] [employer]- All Rights Reserved Reading location - IP/workstation name: [email or web address]
== END ==
LOC: RAD 13:15
PROVIDERS: ATTEND Internal Medicine
DX: M75.111 Incomplete rotator cuff tear or rupture of right shoulder, not specified as traumatic (principal); S43.491A Other sprain of right shoulder joint, initial encounter; X58.XXXA Exposure to other specified factors, initial encounter; M25.511 Pain in right shoulder

== ENCOUNTER → 2020-02-07 | Outpatient (CLI) | payer MEDICARE, OTHER ==
[2020-02-07 17:05] LABS: INTERNATIONAL RATION (INR) 1.97; PROTHROMBIN TIME 22.5 SEC (11.4-15.4)
== END ==
LOC: OD 16:02
PROVIDERS: ATTEND Internal Medicine
DX: Z51.81 Encounter for therapeutic drug level monitoring (principal); Z79.01 Long term (current) use of anticoagulants
CPT/HCPCS: 36415; 85610

== ENCOUNTER → 2020-03-04 | Outpatient (CLI) | payer MEDICARE, OTHER ==
[2020-03-04 13:03] LABS: INTERNATIONAL RATION (INR) 1.56; PROTHROMBIN TIME 18.8 SEC (11.4-15.4)
== END ==
LOC: OD 11:43
PROVIDERS: ATTEND Internal Medicine
DX: Z79.01 Long term (current) use of anticoagulants (principal)
CPT/HCPCS: 36415; 85610

== ENCOUNTER 2020-04-22 20:34 | Emergency (ER) | payer MEDICARE, OTHER ==
--- NOTE | 2020-04-22 20:40 | ER Document Report ---
ED Medical Screen (RME) - General Stated Complaint: NOSE BLEED, EYE BLEEDING Time Seen by Provider: 04/22/20 20:37 Primary Care Provider: AFTAB OROZCO MD [Primary Care Provider] - Follow up as needed Notes: HPI: 65-year-old female presenting with sudden onset of a nosebleed out of both nostrils in the right eye tonight. Patient is on Coumadin for blood clots. Patient does feel blood running down the back of her throat PHYSICAL EXAMINATION: Patient with bright red blood in the posterior pharynx. There is some blood draining from the right eye. Patient is bleeding from both nostrils I have greeted and performed a rapid initial assessment of this patient. A comprehensive ED assessment and evaluation of the patient, analysis of test results and completion of medical decision making process will be conducted by an additional ED providers. Please note that clinical decision making for this patient was made during the 2019 pandemic of novel coronavirus which caused a significant strain on the healthcare system including at this particular facility. Criteria for admission discharge and level of care decisions as well as treatment decisions have necessarily changed TRAVEL OUTSIDE OF THE [place] IN LAST 30 DAYS: No - Related Data Allergies/Adverse Reactions: oxycodone HCl [From Percocet] Allergy (Mild, Verified 09/07/17 10:22) VOMITING Past Medical History - Past Medical History Cardiac Medical History: Reports: Hx Hypertension - MEDICATED Denies: Hx Coronary Artery Disease, Hx Heart Attack Pulmonary Medical History: Denies: Hx Asthma, Hx Bronchitis, Hx COPD, Hx Pneumonia, Hx Tuberculosis Neurological Medical History: Denies: Hx Cerebrovascular Accident, Hx Seizures Renal/ Medical History: Denies: Hx Peritoneal Dialysis GI Medical History: Denies: Hx Hepatitis, Hx Hiatal Hernia, Hx Ulcer Musculoskeltal Medical History: Reports Hx Arthritis - KNEES Psychiatric Medical History: Denies: Hx Depression Infectious Medical History: Denies: Hx Hepatitis Past Surgical History: Reports: Hx Orthopedic Surgery - Bilateral feet. Denies: Hx Hysterectomy, Hx Mastectomy, Hx Open Heart Surgery, Hx Pacemaker - Immunizations Immunizations up to date: Yes Hx Diphtheria, Pertussis, Tetanus Vaccination: No Doctor's Discharge - Discharge Referrals: AFTAB OROZCO MD [Primary Care Provider] - Follow up as needed
[2020-04-22] MEDS ORDERED: TRANEXAMIC ACID INJ/PF 1,000 MG/10 ML SDV IV ONE (20:50)
[2020-04-22] MEDS ORDERED: TRANEXAMIC ACID INJ/PF 1,000 MG/10 ML SDV ONE (20:50)
--- NOTE | 2020-04-22 20:55 | ER Document Report ---
ED General - General Chief Complaint: nosebleed Stated Complaint: NOSE BLEED, EYE BLEEDING Time Seen by Provider: 04/22/20 20:37 Primary Care Provider: AFTAB OROZCO MD [Primary Care Provider] - Follow up as needed TRAVEL OUTSIDE OF THE [place] IN LAST 30 DAYS: No - HPI Notes: Patient is a 65-year-old female presents emergency department for evaluation. She is on Coumadin for pulmonary emboli history. She has not had her INR checked since February. She had spontaneous onset of right-sided nosebleed approximately 40 minutes prior to arrival. She started having blood coming out of her eye and she became more concerned. She denies any pain. No trauma to the area. - Related Data Allergies/Adverse Reactions: oxycodone HCl [From Percocet] Allergy (Mild, Verified 09/07/17 10:22) VOMITING Home Medications: coumadin, metoprolol, Singulair Past Medical History - General Information source: Patient - Social History Smoking Status: Never Smoker Chew tobacco use (# tins/day): No Frequency of alcohol use: None Drug Abuse: None Family History: Reviewed & Not Pertinent Patient has homicidal ideation: No - Past Medical History Cardiac Medical History: Reports: Hx Hypertension - MEDICATED, Hx Pulmonary Embolism Denies: Hx Coronary Artery Disease, Hx Heart Attack Pulmonary Medical History: Denies: Hx Asthma, Hx Bronchitis, Hx COPD, Hx Pneumonia, Hx Tuberculosis Neurological Medical History: Denies: Hx Cerebrovascular Accident, Hx Seizures Renal/ Medical History: Denies: Hx Peritoneal Dialysis GI Medical History: Denies: Hx Hepatitis, Hx Hiatal Hernia, Hx Ulcer Musculoskeletal Medical History: Reports Hx Arthritis - KNEES Psychiatric Medical History: Denies: Hx Depression Infectious Medical History: Denies: Hx Hepatitis Past Surgical History: Reports: Hx Orthopedic Surgery - Bilateral feet. Denies: Hx Hysterectomy, Hx Mastectomy, Hx Open Heart Surgery, Hx Pacemaker - Immunizations Immunizations up to date: Yes Hx Diphtheria, Pertussis, Tetanus Vaccination: No Review of Systems - Review of Systems Constitutional: No symptoms reported EENT: See HPI Cardiovascular: No symptoms reported Respiratory: No symptoms reported Gastrointestinal: No symptoms reported Genitourinary: No symptoms reported Musculoskeletal: No symptoms reported Skin: No symptoms reported Hematologic/Lymphatic: See HPI Neurological/Psychological: No symptoms reported Physical Exam - Vital signs Vitals: Temp Pulse Resp BP Pulse Ox 98.2 F 127 H 24 H 182/87 H 100 04/22/20 20:42 04/22/20 20:42 04/22/20 20:42 04/22/20 20:42 04/22/20 20:42 - Notes Notes: Is a very pleasant 65-year-old female appears her stated age amount amount of distress. She is holding gauze to her nose, she clearly has significant end- stage bleeding from the right nare, and I cannot identify clear source. Head is normocephalic and atraumatic. Pupils are equal round, reactive to light. Patient has bright red blood draining from the right eye consistent with tracking blood from the nasolacrimal duct. Oral mucosa is moist. Heart regular rate and rhythm, lungs clear to station bilaterally. Skin is warm and dry. Patient is awake and alert, cooperative with examiner. Course - Re-evaluation Re-evalutation: 04/22/20 20:54 Patient presents to the emergency department for evaluation. She is having s ignificant bleeding. Blood work is ordered. Because she is only having bleeding from the right nostril, I do suspect this is likely an anterior bleed. We will soaked Rhino Rocket for anterior bleeds and TXA o, in place in an effort to quell bleeding. Patient is amenable to this plan. 04/22/20 21:00 Patient's bleeding has slowed significantly. We will have her continue to apply direct manual pressure, and see if we can hold off on the Rhino Rocket at this time. 04/22/20 22:09 Patient did not rebleed. Her INR is only 1.5. I will have her follow-up closely with her primary care provider. The patient is told not to rub, blow, or bother her nose in any way. She is to return to the emergency department with worsening. Otherwise her INR is slightly low tonight, but certainly I would not be adjusting Coumadin levels given her significant bleeding earlier. She is to discuss with her primary care provider. - Vital Signs Vital signs: Temp Pulse Resp BP Pulse Ox 98.0 F 127 H 13 133/69 H 99 04/22/20 22:37 04/22/20 20:42 04/22/20 22:01 04/22/20 22:01 04/22/20 22:01 - Laboratory Results Result Diagrams: 04/22/20 20:43 04/22/20 20:43 Laboratory Results Interpreted: 04/22/20 04/22/20 04/22/20 20:43 20:43 20:43 RDW 16.0 H Seg Neuts % (Manual) 28 L Band Neutrophils % 1 L Lymphocytes % (Manual) 59 H Abs Lymphs (Manual) 5.0 H PT 18.4 H Sodium 136.5 L Est GFR (MDRD) Non-Af 58 L Glucose 137 H Critical Laboratory Results Reviewed: No Critical Results - Radiology Results Critical Radiology Results Reviewed: No Critical Results Discharge - Discharge Clinical Impression: Acute anterior epistaxis Condition: Stable Disposition: HOME, SELF-CARE Instructions: Nosebleed Instructions ([facility]) Additional Instructions: As discussed, do not blow your nose, touch your nose, or rub your nose for the next 24 hours. Follow-up closely with your primary care provider. If your nose starts to bleed again, apply constant pressure for 20 to 30 minutes. If this is not sufficient to stop the bleeding, return to the ER for further evaluation. Otherwise, follow-up with your primary care provider next week. Referrals: AFTAB OROZCO MD [Primary Care Provider] - Follow up as needed
[2020-04-22 21:11] LABS: INTERNATIONAL RATION (INR) 1.52; PROTHROMBIN TIME 18.4 SEC (11.4-15.4)
[2020-04-22 21:13] LABS: HEMATOCRIT 39.9 % (36.0-47.0); HEMOGLOBIN 13.5 g/dL (12.0-15.5); MEAN CORPUSCULAR HEMOGLOBIN 29.5 pg (27.0-33.4); MEAN CORPUSCULAR HGB CONC 33.8 g/dL (32.0-36.0); MEAN CORPUSCULAR VOLUME 87 fl (80-97); PLATELET COUNT 286 10^3/uL (150-450); RED BLOOD COUNT 4.56 10^6/uL (3.72-5.28); WHITE BLOOD COUNT 8.3 10^3/uL (4.0-10.5)
[2020-04-22 21:21] LABS: ALBUMIN 4.4 g/dL (3.5-5.0); ALKALINE PHOSPHATASE 86 U/L (38-126); ANION GAP 8 (5-19); ASPARTATE AMINO TRANSFERASE 34 U/L (14-36); BILIRUBIN,DIRECT 0.2 mg/dL (0.0-0.4); BILIRUBIN,TOTAL 0.4 mg/dL (0.2-1.3); BLOOD UREA NITROGEN 19 mg/dL (7-20); CALCIUM 9.2 mg/dL (8.4-10.2); CARBON DIOXIDE 28 mmol/L (22-30); CHLORIDE 101 mmol/L (98-107); GLUCOSE 137 mg/dL (75-110); POTASSIUM 3.8 mmol/L (3.6-5.0); TOTAL PROTEIN 7.7 g/dL (6.3-8.2)
[2020-04-22 21:33] LABS: ABSOLUTE MONOCYTES # (MANUAL) 0.7 10^3/uL (0.1-1.4); BAND NEUTROPHILS % (MANUAL) 1 % (3-5); BASOPHILS % (MANUAL) 0 % (0-2); EOSINOPHILS % (MANUAL) 3 % (0-6); LYMPHOCYTES % (MANUAL) 59 % (13-45); MONOCYTES % (MANUAL) 8 % (3-13); SEGMENTED NEUTROPHILS % (MAN) 28 % (42-78); TOTAL CELLS COUNTED 100
[2020-04-22 21:34] LABS: ANISOCYTOSIS 1+; PLATELET COMMENT ADEQUATE
[2020-04-22 22:22] VITALS: BP 133/69
== END 2020-04-22 22:37 | disposition home or self-care (01) ==
LOC: ER 20:34
DX: R04.0 Epistaxis (principal); I10 Essential (primary) hypertension; Z86.711 Personal history of pulmonary embolism; Z87.01 Personal history of pneumonia (recurrent); Z79.899 Other long term (current) drug therapy; Z88.6 Allergy status to analgesic agent; Z88.5 Allergy status to narcotic agent
CPT/HCPCS: 36415; 80053; 85025; 85610; 99283

== ENCOUNTER 2020-04-22 23:50 | Emergency (ER) | payer MEDICARE, OTHER ==
[2020-04-23] MEDS ORDERED: TRANEXAMIC ACID INJ/PF 1,000 MG/10 ML SDV TOP ONE
[2020-04-23] MEDS ORDERED: HYDROCODONE/ACETAMINOPHEN 5-325 MG TABLET PO ONE (00:17)
[2020-04-23] MEDS ORDERED: ONDANSETRON 4 MG TAB.RAPDIS PO ONE (00:19)
--- NOTE | 2020-04-23 00:26 | ER Document Report ---
ED General - General Chief Complaint: Nose Bleed Stated Complaint: NOSE BLEED/LIGHTHEADEDNESS Time Seen by Provider: 04/22/20 23:56 Primary Care Provider: AFTAB OROZCO MD [Primary Care Provider] - Follow up as needed TRAVEL OUTSIDE OF THE [place] IN LAST 30 DAYS: No - HPI Notes: Patient is a 65-year-old female who presents emergency department for evaluation. I had the pleasure of seeing this patient earlier in the evening. She had been seen for a nosebleed, is on Coumadin. Her INR was 1.5. She had already taken her Coumadin for the night. She went home after her hemostasis was achieved without any sort of intervention. Approximately 40 minutes after leaving the department her nose started to bleed again. She comes to the ED for further evaluation. - Related Data Allergies/Adverse Reactions: oxycodone HCl [From Percocet] Allergy (Mild, Verified 09/07/17 10:22) VOMITING Past Medical History - General Information source: Patient - Social History Smoking Status: Never Smoker Family History: Reviewed & Not Pertinent - Past Medical History Cardiac Medical History: Reports: Hx Hypertension - MEDICATED, Hx Pulmonary Embolism Denies: Hx Coronary Artery Disease, Hx Heart Attack Pulmonary Medical History: Denies: Hx Asthma, Hx Bronchitis, Hx COPD, Hx Pneumonia, Hx Tuberculosis Neurological Medical History: Denies: Hx Cerebrovascular Accident, Hx Seizures Renal/ Medical History: Denies: Hx Peritoneal Dialysis GI Medical History: Denies: Hx Hepatitis, Hx Hiatal Hernia, Hx Ulcer Musculoskeletal Medical History: Reports Hx Arthritis - KNEES Psychiatric Medical History: Denies: Hx Depression Infectious Medical History: Denies: Hx Hepatitis Past Surgical History: Reports: Hx Orthopedic Surgery - Bilateral feet. Denies: Hx Hysterectomy, Hx Mastectomy, Hx Open Heart Surgery, Hx Pacemaker - Immunizations Immunizations up to date: Yes Hx Diphtheria, Pertussis, Tetanus Vaccination: No Review of Systems - Review of Systems Constitutional: No symptoms reported EENT: See HPI Cardiovascular: No symptoms reported Respiratory: No symptoms reported Gastrointestinal: No symptoms reported Genitourinary: No symptoms reported Musculoskeletal: No symptoms reported Skin: No symptoms reported Neurological/Psychological: No symptoms reported Physical Exam - Vital signs Vitals: Temp Pulse Resp BP Pulse Ox 97.8 F 121 H 18 173/88 H 94 04/22/20 23:58 04/22/20 23:58 04/22/20 23:58 04/22/20 23:58 04/22/20 23:58 - Notes Notes: Heart regular rate and rhythm this is a 65-year-old female who appears her stated age in a mild amount of stress. She has very minimal bleeding coming from the right nostril. There is evidence of dried blood in the left. Course - Re-evaluation Re-evalutation: 04/23/20 00:28 Patient presents to the emergency department for evaluation. Unfortunately this is a patient on Coumadin who was already seen earlier this evening for a nosebleed. It has reoccurred. Decision was made to proceed with Rhino Rocket placement. The Rhino Rocket was soaked in sterile water and then tranexamic acid. It was inserted into the right nare without significant difficulty. The patient did have some pain, pain medication ordered. She notes a Percocet allergy, states she vomits with this. I noted to her that this is in fact a known side effect of most narcotic medications, I told her I would pretreat with nausea medication, but warned her of the possibility of nausea or vomiting with any narcotics. She voiced understanding. Chavo and Aydee ordered. We will continue to monitor. 04/23/20 01:24 Patient has had no rebleeding. No blood going down the posterior pharynx. She is stable. We will send her with Aydee and Chavo, instructions to have it removed in 48 to 72 hours with primary care. She is to return to the ED with worsening. - Vital Signs Vital signs: Temp Pulse Resp BP Pulse Ox 97.8 F 121 H 18 173/88 H 94 04/22/20 23:58 04/22/20 23:58 04/22/20 23:58 04/22/20 23:58 04/22/20 23:58 - Laboratory Results Critical Laboratory Results Reviewed: No Critical Results - Radiology Results Critical Radiology Results Reviewed: No Critical Results Discharge - Discharge Clinical Impression: Acute anterior epistaxis Condition: Stable Disposition: HOME, SELF-CARE Instructions: Nosebleed Instructions ([facility]) Additional Instructions: Rhino Rocket is to be in place for 48 to 72 hours. It can be removed by your primary care provider. Please trying to not blow your nose. You should not take your Coumadin for the next 2 to 3 days. Follow-up with your primary care provider for Rhino Rocket removal. [place] as needed for severe pain. Please watch for dizziness, drowsiness, nausea, constipation with this medication. Zofran can be used for nausea. Return to the emergency department for worsening or new concerning symptoms of any sort. Referrals: AFTAB OROZCO MD [Primary Care Provider] - Follow up as needed
[2020-04-23] MEDS ORDERED: HYDROCODONE/ACETAMINOPHEN 5-325 MG (6 TAB/ER DISP) PO PRN (01:23)
[2020-04-23] MEDS ORDERED: ONDANSETRON ODT 4 MG TAB (6 TAB/ER DISP) PO PRN (01:24)
[2020-04-23 01:31] VITALS: BP 128/65
== END 2020-04-23 01:49 | disposition home or self-care (01) ==
LOC: ER 23:50
DX: R04.0 Epistaxis (principal); I10 Essential (primary) hypertension; Z79.02 Long term (current) use of antithrombotics/antiplatelets; Z88.6 Allergy status to analgesic agent; Z86.711 Personal history of pulmonary embolism
CPT/HCPCS: 99283; 30901; A9270 ×4; J3490; S0119

== ENCOUNTER → 2020-04-27 | Outpatient (CLI) | payer MEDICARE, OTHER ==
--- NOTE | 2020-04-27 12:46 | RADIOLOGY REPORT (SQ) ---
EXAM DESCRIPTION: CT ABD/PELVIS WITH IV ONLY IMAGES COMPLETED DATE/TIME: 04/27/2020 12:21 pm REASON FOR STUDY: (R10.30)LOWER ABDOMINAL PAIN, UNSPECIFIED R10.30 LOWER ABDOMINAL PAIN, UNSPECIFIE D COMPARISON: 12/25/2015 TECHNIQUE: CT scan of the abdomen and pelvis performed using helical scanning technique with dynamic intravenous contrast injection. No oral contrast. Images reviewed with lung, soft tissue, and bone windows. Reconstructed coronal and sagittal MPR images reviewed. Delayed images for evaluation of the urinary system also acquired. All images stored on PACS. All CT scanners at this facility use dose modulation, iterative reconstruction, and/or weight based d osing when appropriate to reduce radiation dose to as low as reasonably achievable (ALARA). [facility]: Dose Right [facility]: CareDose [facility]: Dose Right [facility]: Teradose 4D [facility]: Huan Xiong CONTRAST TYPE AND DOSE: contrast/concentration: Isovue 350.00 mmol/ml; Total Contrast Delivered: 98. 0 ml; Total Saline Delivered: 72.0 ml RENAL FUNCTION: BUN 19; creatinine 0.96 RADIATION DOSE: CT Rad equipment meets quality standard of care and radiation dose reduction techniq ues were employed. CTDIvol: 16.1 - 17.9 mGy. DLP: 1841 mGy-cm.. LIMITATIONS: None. FINDINGS: LOWER CHEST: No significant findings. No nodules or infiltrates. LIVER: Few scattered subcentimeter hypoattenuating foci likely represent tiny hepatic cysts versus he patic hemangiomas. No focal mass. No intrahepatic biliary dilatation. SPLEEN: Normal size. No focal lesions. PANCREAS: No masses. No significant calcifications. No adjacent inflammation or peripancreatic fluid collections. Pancreatic duct not dilated. GALLBLADDER: No identified stones by CT criteria. No inflammatory changes to suggest cholecystitis. ADRENAL GLANDS: No significant masses or asymmetry. RIGHT KIDNEY AND URETER: No solid masses. No significant calcifications. No hydronephrosis or hyd roureter. LEFT KIDNEY AND URETER: No solid masses. Incidental note is made of 2 exophytic simple cysts, simila r to that seen on 2016 CT imaging. No significant calcifications. No hydronephrosis or hydrourete r. AORTA AND VESSELS: No aneurysm. No dissection. Renal arteries, SMA, celiac without stenosis. RETROPERITONEUM: No retroperitoneal adenopathy, hemorrhage or masses. BOWEL AND PERITONEAL CAVITY: No masses or inflammatory changes. No free fluid or peritoneal masses. APPENDIX: Normal. PELVIS: No mass. No free fluid. Normal bladder. The uterus and adnexa are normal for modality. ABDOMINAL WALL: No masses. No hernias. BONES: No significant or acute findings. OTHER: No other significant finding. IMPRESSION: No evidence of acute intra-abdominal infectious/inflammatory process. No findings to co rrelate to the patient's reported lower abdominal pain. TECHNICAL DOCUMENTATION: JOB ID: [id number] Quality ID # [id number]: Final reports with documentation of one or more dose reduction techniques (e.g., Au tomated exposure control, adjustment of the mA and/or kV according to patient size, use of iterative reconstruction technique) 2010 [employer]- All Rights Reserved Reading location - IP/workstation name: [email or web address]
== END ==
LOC: RAD 12:00
PROVIDERS: ATTEND Internal Medicine
DX: R10.30 Lower abdominal pain, unspecified (principal)
CPT/HCPCS: 74177